=== PATIENT | female | born 1990 | race Caucasian/White ===

== ENCOUNTER 2016-12-23 01:31 | Day surgery (SDC) | payer MEDICAID ==
[~2016-12-23 01:31] MED LIST: BENTYL20 MG PO; DEPAKOTE500 MG PO; EPITOL200 MG PO; IBUPROFEN200 M2 PO; NORCO 5/3251 TAB PO; REGLAN5 MG PO; RELAFEN500 MG PO; SULFAMYLON453.6 GM TP
[2016-12-23] MEDS ORDERED: SYNTHROID175 MC1 PO (01:52)
[2016-12-23] MEDS ORDERED: LOSARTAN-HCTZ1 EAC4 PO (01:52)
[2016-12-23] MEDS ORDERED: DEPO-PROVE150 MG/1 M IM (01:53)
[2016-12-23] MEDS ORDERED: WOMEN'S DAILY1 EAC4 PO (01:53)
[2016-12-23 02:57] LABS: ALBUMIN 3.2 g/dl (3.5-5.0); ALKALINE PHOSPHATASE 70 U/L (33-138); ALT/SGPT 24 U/L (12-78); ANION GAP 13 mmol/L (0-20); AST/SGOT 17 U/L (10-40); BILIRUBIN,TOTAL 0.5 mg/dl (0-1.5); BLOOD UREA NITROGEN 6 mg/dl (6-24); CALCIUM 8.3 mg/dl (8.5-10.5); CARBON DIOXIDE-VENOUS 25 mmol/L (22-32); CHLORIDE 107 mmol/l (96-110); CREATININE 0.67 mg/dl (0.50-1.10); GLUCOSE 104 mg/dL (70-110); POTASSIUM 3.9 mmol/L (3.7-5.1); SODIUM 141 mmol/L (135-145); eGFR VALUE FOR BLACK >90 mL/Min
[2016-12-23 03:00] LABS: URINE BILIRUBIN NEGATIVE (NEG); URINE BLOOD NEGATIVE (NEG); URINE GLUCOSE (UA) NEGATIVE (NEG); URINE KETONE NEGATIVE (NEG); URINE LEUKOCYTE ESTERASE POSITIVE (NEG); URINE NITRITE NEGATIVE (NEG); URINE PH 6.5 (5.0-8.0); URINE PROTEIN NEGATIVE (NEG); URINE SPECIFIC GRAVITY 1.015 (1.003-1.030)
[2016-12-23 03:01] LABS: URINE APPEARANCE HAZY; URINE COLOR YELLOW
[2016-12-23 03:05] LABS: URINE MUCUS 1+; URINE RBC 0 /[HPF] (0-5)
[2016-12-23 03:11] LABS: BASO % 0.1 % (0-2); EOSINOPHIL ABSOLUTE COUNT 0.1 tho/cmm (0.0-0.7); IMMATURE GRANULOCYTES ABSOLUTE 0.02 tho/cmm (0-0.03); IMMATURE GRANULOCYTES PERCENT 0.2 % (0-0.3); LYMPH % 21.8 % (20-45); MCH (MEAN CORPUSCULAR HGB) 27.2 pg (28.0-32.0); MCHC MEAN CORPUSCULAR HGB CONC 33.3 % (32.0-36.0); MCV (MEAN CELL VOLUME) 81.6 fl (82.0-96.0); MEAN PLATELET VOLUME 9.9 cmc (9.4-12.4); MONO % 7.6 % (0-12); MONOCYTE ABSOLUTE COUNT 0.7 tho/cmm (0.0-1.2); NEUTROPHIL ABSOLUTE COUNT 6.3 tho/cmm (1.6-8.0); NEUTROPHIL-AUTOMATED 6.3 tho/cmm (1.6-8.0); NEUTROPHILS % 69.3 % (40-80); PLATELET COUNT 247 tho/cmm (150-450); RED BLOOD COUNT 4.78 mil/cmm (4.00-5.20); RED CELL DISTRIBUTION WIDTH 13.5 % (12.4-16.4); WHITE BLOOD COUNT 9.1 tho/cmm (4.0-10.0)
[2016-12-24 05:56] LABS: BASO % 0.2 % (0-2); EOS % 0.9 % (0-7); EOSINOPHIL ABSOLUTE COUNT 0.1 tho/cmm (0.0-0.7); HCT-HEMATOCRIT 35.6 % (34.0-49.0); HGB-HEMOGLOBIN 11.3 gm/dl (12.0-15.5); IMMATURE GRANULOCYTES ABSOLUTE 0.02 tho/cmm (0-0.03); IMMATURE GRANULOCYTES PERCENT 0.3 % (0-0.3); LYMPH ABSOLUTE COUNT 1.9 tho/cmm (0.8-4.5); MCH (MEAN CORPUSCULAR HGB) 26.7 pg (28.0-32.0); MCHC MEAN CORPUSCULAR HGB CONC 31.7 % (32.0-36.0); MCV (MEAN CELL VOLUME) 84.2 fl (82.0-96.0); MEAN PLATELET VOLUME 10.1 cmc (9.4-12.4); MONO % 9.3 % (0-12); MONOCYTE ABSOLUTE COUNT 0.6 tho/cmm (0.0-1.2); NEUTROPHILS % 60.3 % (40-80); PLATELET COUNT 232 tho/cmm (150-450); RED BLOOD COUNT 4.23 mil/cmm (4.00-5.20); RED CELL DISTRIBUTION WIDTH 14.2 % (12.4-16.4); WHITE BLOOD COUNT 6.7 tho/cmm (4.0-10.0)
[2016-12-24 06:08] LABS: ANION GAP 13 mmol/L (0-20); BLOOD UREA NITROGEN 9 mg/dl (6-24); CALCIUM 7.7 mg/dl (8.5-10.5); CARBON DIOXIDE-VENOUS 22 mmol/L (22-32); CHLORIDE 111 mmol/l (96-110); CREATININE 0.68 mg/dl (0.50-1.10); GLUCOSE 107 mg/dL (70-110); MAGNESIUM 2.1 mg/dl (1.8-2.6); POTASSIUM 3.8 mmol/L (3.7-5.1); SODIUM 142 mmol/L (135-145); eGFR VALUE FOR BLACK >90 mL/Min
[2016-12-24] MEDS ORDERED: NORCO 5-325 TA1 EACH PO (08:46)
[2016-12-24] MEDS ORDERED: SENOKOT8.6 M1 PO (08:47)
== END 2016-12-24 12:30 ==
LOC: EDMED 01:31 → SRG 06:20 → PACU 08:48 → CAR1 09:44
PROVIDERS: Colon & Rectal Surgery; Emergency Medicine
PROC: 0DTJ4ZZ Resection of Appendix, Percutaneous Endoscopic Approach (ICD-10-PCS; principal; 2016-12-23)
DX: K35.80 Unspecified acute appendicitis (principal); E66.01 Morbid (severe) obesity due to excess calories; I10 Essential (primary) hypertension; E03.9 Hypothyroidism, unspecified; J45.909 Unspecified asthma, uncomplicated; K21.9 Gastro-esophageal reflux disease without esophagitis; F17.200 Nicotine dependence, unspecified, uncomplicated; Z79.899 Other long term (current) drug therapy; Z88.0 Allergy status to penicillin; Z88.5 Allergy status to narcotic agent; Z88.2 Allergy status to sulfonamides; Z88.6 Allergy status to analgesic agent; Z90.89 Acquired absence of other organs; Z98.890 Other specified postprocedural states
CPT/HCPCS: J1170; J1650; J1885; J3010; J3480; J7030; P9612